=== PATIENT | female | born 1975 | race Caucasian/White ===

== ENCOUNTER 2020-12-22 06:06 | Outpatient (REF) | payer OTHER, SELFPAY ==
--- NOTE | ~2020-12-22 | MM_ITS ---
EXAMINATION: MM DIAGNOSTIC DIGITAL BREAST TOMOSYNTHESIS, BILATERAL TARGETED LEFT BREAST ULTRASOUND CLINICAL INFORMATION: Left breast lump upper outer quadrant. The lifetime risk of breast cancer based on the Tyrer-Cuzick Model is 8.2%. COMPARISON: Mammography: None. TECHNIQUE: Digital breast tomosynthesis is performed in both the craniocaudal and mediolateral oblique views along with computer-aided detection (CAD). Synthesized 2D images are generated from the tomosynthesis. Targeted left breast ultrasound. FINDINGS: The breasts are extremely dense, which lowers the sensitivity of mammography (ACR BI-RADS breast composition Category d). There are no significant masses, abnormal calcifications, or other abnormalities. Targeted ultrasound evaluation upper outer quadrant of the left breast demonstrated a small simple cyst measuring 5 x 4 x 2 mm in size. No suspicious solid mass identified. No region of abnormal distal sound shadowing. No edematous change within the parenchyma. Results are provided to the patient at time of visit by the technologist. MM/MM tomosynthesis diagnostic BI IMPRESSION: No specific mammographic or ultrasound findings to suggest malignancy. ASSESSMENT: BI-RADS 2: Benign. RECOMMENDATION: Routine annual mammography screening due in 12 months. This patient's information was entered into a reminder system with a target due date for their next mammogram.
--- NOTE | ~2020-12-22 | US_ITS ---
EXAMINATION: US DIAGNOSTIC ULTRASOUND BREAST, LEFT CLINICAL INFORMATION: Left breast lump upper outer quadrant. COMPARISON: Mammogram of same day. TECHNIQUE: Ultrasound of the breast is performed with real-time castrejon scale imaging and color Doppler. FINDINGS: There is a simple 5 x 4 x 3 mm cyst at the 2:00 position 9 cm from the nipple. There is no solid mass, architectural abnormality, duct ectasia, or edema in the soft tissue planes. Results are discussed with the patient at time of visit. US/US breast LT limited IMPRESSION: Small cyst upper outer quadrant of the left breast with no suspicious ultrasound findings. ASSESSMENT: BI-RADS 2: Benign RECOMMENDATION: Routine annual mammography screening due in 12 months. This patient's information was entered into a reminder system with a target due date for their next mammogram.
[2020-12-22 11:12] LABS: MANUAL DIFF FLAG NO
[2020-12-22 11:38] LABS: Alanine Aminotransferase 10 U/L (0-31); Albumin Level 4.3 g/dL (3.5-5.0); Alkaline Phosphatase 63 U/L (39-117); Anion Gap 15 (12-20); Aspartate Amino Transferase 11 U/L (5-31); Bilirubin Direct < 0.2 mg/dL (0.0-0.5); Bilirubin Total 0.3 mg/dL (0.0-1.0); Blood Urea Nitrogen 13 mg/dL (9-16); Calcium 9.3 mg/dL (8.4-10.2); Carbon Dioxide 24 mmol/L (22-29); Chloride 106 mmol/L (96-108); Cholesterol 153 mg/dL; Estimated Glomerular Filt Rate > 60; Glucose Fasting 107 mg/dL (60-99); HDL Cholesterol 41 mg/dL; LDL Cholesterol Calculated 89 mg/dl; Potassium 4.5 mmol/L (3.3-5.1); Sodium 140 mmol/L (135-145); Total Protein 7.3 g/dL (6.5-8.0); Triglycerides 118 mg/dL
[2020-12-22 11:40] LABS: Basophils Percent Auto 0.6 % (0-2); Eosinophils Absolute Auto 0.1 X10*3/uL (0.0-0.4); Eosinophils Percent Auto 1.8 % (0-4); Hematocrit 35.7 % (37-47); Hemoglobin 10.6 g/dl (12.0-16.0); Imm Gran Abs Auto 0.02 X10*3/uL (0.00-0.03); Imm Gran Pct Auto 0.4 % (0.0-0.4); Lymphocytes Absolute Auto 1.3 X10*3/uL (1.2-4.9); Lymphocytes Percent Auto 23.7 % (20-40); Mean Corpuscular HGB Conc 29.7 g/dl (31.0-35.0); Mean Corpuscular Hemoglobin 22.1 pg (27.0-33.0); Mean Corpuscular Volume 74.4 fL (80-98); Mean Platelet Volume 10.5 fL (9.4-12.3); Monocytes Absolute Auto 0.5 X10*3/uL (0.1-1.2); Monocytes Percent Auto 8.6 % (2-11); Neutrophils Absolute Auto 3.5 X10*3/uL (2.0-8.3); Neutrophils Percent Auto 64.9 % (45-73); Platelet Count 307 X10*3/uL (160-400); Red Cell Distribution Width 19.9 % (11.0-16.0); White Blood Count 5.5 X10*3/uL (4.8-10.8)
[2020-12-22 12:02] LABS: TSH reflex Free T4 0.51 uIU/mL (0.32-4.0)
[2020-12-22 12:08] LABS: Vitamin B12 271 pg/mL (200-900)
[2020-12-27 11:07] LABS: Vitamin D 25-OH, D2 <4 ng/mL; Vitamin D 25-OH, D3 31 ng/mL; Vitamin D 25-OH, Total 31 ng/mL (30-100)
== END 2020-12-22 06:07 | disposition home or self-care (01) ==
LOC: HO.MAMMO 06:06
PROVIDERS: PCP Internal Medicine; Visit Provider Internal Medicine
DX: Z00.01 Encounter for general adult medical examination with abnormal findings (principal); N63.21 Unspecified lump in the left breast, upper outer quadrant; R53.83 Other fatigue; Z72.0 Tobacco use
CPT/HCPCS: 36415; 76642; 77062; 77066; 80048; 80061; 80076; 82306; 82607; 84443; 85025

== ENCOUNTER 2021-02-16 08:56 | Outpatient (REF) | payer OTHER, SELFPAY ==
--- NOTE | ~2021-02-16 | US_ITS ---
EXAMINATION: US THYROID CLINICAL INFORMATION: Nontoxic goiter, unspecified. COMPARISON: None TECHNIQUE: Linear transducer castrejon-scale and color Doppler examination with attention to the region of the thyroid. FINDINGS: SIZE: Measurements of the thyroid lobes and nodules are given in sagittal, anteroposterior and transverse dimensions respectively. Right Thyroid Lobe: 8.0 x 2.3 x 2.9 cm, volume 27.9 mL. Parenchyma: The gland echotexture is heterogeneous. Thyroid vascularity is normal. Left Thyroid Lobe: 7.1 x 2.0 x 1.9 cm, volume 14.1 mL. Parenchyma: The gland echotexture is heterogeneous. Thyroid vascularity is normal. Isthmus: 0.5 cm in maximum AP dimension. Estimated total number of nodules greater than or equal to 1 cm: 6 to 10. Marketing Production Specialist nodules are described as follows: 1. Location: Right superior. Size: 1.0 x 0.8 x 1.0 cm, volume 0.45 mL. Nodule characteristics: Composition: Solid (2). Echogenicity: Isoechoic (1). Shape: Not taller than wide (0). Margins: Smooth (0). Echogenic Foci: None (0). ACR TI-RADS total points: 3 ACR TI-RADS category: 3 2. Location: Right inferior medial. Size: 2.7 x 1.4 x 3.3 cm, volume 6.55 mL. Nodule characteristics: Composition: Solid/almost completely solid (2). Echogenicity: Isoechoic (1). Shape: Not taller than wide (0). Margins: Ill-defined (0). Echogenic Foci: None (0). ACR TI-RADS total points: 3 ACR TI-RADS category: 3 3. Location: Left mid/inferior lateral. Size: 1.9 x 0.8 x 1.1 cm, volume 0.92 mL. Nodule characteristics: Composition: Solid (2). Echogenicity: Hypoechoic (2). Shape: Not taller than wide (0). Margins: Smooth (0). Echogenic Foci: None (0). ACR TI-RADS total points: 4 ACR TI-RADS category: 4 4. Location: Left mid/inferior. Size: 1.7 x 1.1 x 1.4 cm, volume 1.32 mL. Nodule characteristics: Composition: Solid/almost completely solid (2). Echogenicity: Isoechoic (1). Shape: Not taller than wide (0). Margins: Ill-defined (0). Echogenic Foci: None (0). ACR TI-RADS total points: 3 ACR TI-RADS category: 3 5. Location: Left inferior. Size: 1.3 x 1.1 x 1.9 cm, volume 1.44 mL. Nodule characteristics: Composition: Solid (2). Echogenicity: Hypoechoic (2). Shape: Not taller than wide (0). Margins: Smooth (0). Echogenic Foci: None (0). ACR TI-RADS total points: 4 ACR TI-RADS category: 4 NODES: No lymphadenopathy is seen in the tissue surrounding the thyroid gland. US/US thyroid IMPRESSION: Enlarged heterogeneous thyroid gland with multiple bilateral nodules. Fine-needle aspiration of the largest nodule in the right lobe and largest 2 nodules in the left lobe should be considered, as described below. ACR TI-RADS RECOMMENDATION REFERENCE: Ultrasound-guided fine-needle aspiration, followup ultrasound, no further followup. * TR1 (0 point) and TR 2 (2 points): No FNA or followup. * TR3 (3 points): FNA if more than or equal to 2.5 cm in maximum dimension, followup ultrasound in 1, 3 and 5 years if 1.5 to 2.4 cm in maximum dimension. * TR4 (4-6 points): FNA if more than or equal to 1.5 cm in maximum dimension, followup ultrasound in 1, 2, 3 and 5 years if 1 to 1.4 cm in maximum dimension. * TR5 (more than or equal to 7 points): FNA if more than or equal to 1 cm in maximum dimension, followup ultrasound every year for 5 years if 0.5 to 0.9 cm in maximum dimension. * TR3, TR4 or TR5 nodules that are below the size threshold for followup receive no followup.
== END 2021-02-16 08:57 | disposition home or self-care (01) ==
LOC: HO.HMGCX 08:56
PROVIDERS: Visit Provider Internal Medicine
DX: E04.9 Nontoxic goiter, unspecified (principal)
CPT/HCPCS: 76536

== ENCOUNTER 2021-03-12 09:04 | Outpatient (REF) | payer OTHER, SELFPAY ==
[2021-03-12 13:55] LABS: MANUAL DIFF FLAG NO
[2021-03-12 14:02] LABS: Basophils Percent Auto 0.6 % (0-2); Eosinophils Absolute Auto 0.1 X10*3/uL (0.0-0.4); Eosinophils Percent Auto 2.1 % (0-4); Hematocrit 33.2 % (37-47); Imm Gran Abs Auto 0.01 X10*3/uL (0.00-0.03); Imm Gran Pct Auto 0.2 % (0.0-0.4); Lymphocytes Absolute Auto 1.8 X10*3/uL (1.2-4.9); Lymphocytes Percent Auto 35.1 % (20-40); Mean Corpuscular HGB Conc 30.1 g/dl (31.0-35.0); Mean Corpuscular Hemoglobin 21.8 pg (27.0-33.0); Mean Corpuscular Volume 72.3 fL (80-98); Mean Platelet Volume 10.6 fL (9.4-12.3); Monocytes Absolute Auto 0.4 X10*3/uL (0.1-1.2); Monocytes Percent Auto 8.2 % (2-11); Neutrophils Absolute Auto 2.8 X10*3/uL (2.0-8.3); Neutrophils Percent Auto 53.8 % (45-73); Platelet Count 353 X10*3/uL (160-400); Red Blood Count 4.59 X10*6/uL (4.20-5.50); Red Cell Distribution Width 20.2 % (11.0-16.0); White Blood Count 5.2 X10*3/uL (4.8-10.8)
[2021-03-12 14:16] LABS: Estimated Average Glucose 91 mg/dL; Hemoglobin A1c % 4.8 %
[2021-03-12 14:43] LABS: Alanine Aminotransferase 15 U/L (0-31); Albumin Level 4.2 g/dL (3.5-5.0); Alkaline Phosphatase 70 U/L (39-117); Anion Gap 12 (12-20); Aspartate Amino Transferase 12 U/L (5-31); Bilirubin Total 0.6 mg/dL (0.0-1.0); Blood Urea Nitrogen 8 mg/dL (9-16); Calcium 9.4 mg/dL (8.4-10.2); Carbon Dioxide 23 mmol/L (22-29); Chloride 106 mmol/L (96-108); Estimated Glomerular Filt Rate > 60; Glucose Random 103 mg/dL (60-115); Iron 19 mcg/dL (30-160); Percent Iron Saturation 4 % (15-50); Potassium 3.9 mmol/L (3.3-5.1); Sodium 137 mmol/L (135-145); Total Iron Binding Capacity 457 mcg/dL (228-428); Total Protein 7.1 g/dL (6.5-8.0); Unsaturated Iron Binding 438 ug/dL
[2021-03-12 14:55] LABS: Ferritin 4 ng/mL (10-250); Thyroid Stimulating Hormone 0.39 uIU/mL (0.32-4.0)
[2021-03-12 14:58] LABS: Free T4 (Free Thyroxine) 1.08 ng/dL (0.71-1.85)
[2021-03-12 15:07] LABS: Vitamin B12 279 pg/mL (200-900)
[2021-03-13 09:37] LABS: Thyroglobulin Antibodies <1 IU/mL (< or = 1); Thyroid Peroxidase Antibodies <1 IU/mL (<9)
== END 2021-03-12 09:05 | disposition home or self-care (01) ==
LOC: HO.HMGCLDS 09:04
PROVIDERS: PCP Internal Medicine; Visit Provider Internal Medicine Endocrinology, Diabetes & Metabolism
DX: I10 Essential (primary) hypertension (principal); R73.03 Prediabetes; E04.2 Nontoxic multinodular goiter
CPT/HCPCS: 36415; 80053; 82607; 82728; 83036; 83540; 84439; 84443; 85025; 86376; 86800

== ENCOUNTER 2021-03-22 09:41 | Outpatient (REF) | payer OTHER, SELFPAY ==
--- NOTE | 2021-03-22 10:39 | PM.OP ---
Brief Operative Note Date of Service: 03/22/21 Pre-op diagnosis: NONTOXIC MULTINODULAR GOITER Post-op diagnosis: same Procedure: This procedure was explained to the patient. Alternatives, risks and benefits were discussed. Written consent was obtained. After sterile preparation of the skin, fine-needle aspiration biopsy of left mid medial thyroid nodule size 1.9 x 1.1 x 1.5 cm was performed under direct ultrasound guidance to confirm accurate needle placement. Three passes were performed with 27 gauge needles. Sample was submitted to cytology, initial cytology reading was adequate. Two passes were dedicated for [employer] genomic sequencing tank processor test. A second fine-needle aspiration biopsy of left lower pole thyroid nodule size 1.3 x 1.1 x 1.9 cm was performed under direct ultrasound guidance to confirm accurate needle placement. Three passes were performed with 27 gauge needles. Sample was submitted to cytology, initial cytology reading was adequate. Two passes were dedicated for [employer] genomic sequencing tank processor test. Patient tolerated procedure well. A third fine-needle aspiration biopsy of right mid to lower pole thyroid nodule size 2.7 x 1.4 x 3.3 cm was performed under direct ultrasound guidance to confirm accurate needle placement. Four passes were performed with 27 gauge needles. Sample was submitted to cytology, initial cytology reading was adequate. Two passes were dedicated for [employer] genomic sequencing tank processor test. Aftercare instructions were provided. Impression: uncomplicated fine-needle aspiration biopsy of left mid medial thyroid nodule, left lower pole nodule and right mid to lower pole thyroid nodules under direct ultrasound guidance. Surgeon: Luis Adams MD Anesthesia: local (Lidocaine 1 % 3 ml) Was an Environmental Compliance Technician used for this Procedure?: No Estimated blood loss (mL): 0 Condition: stable Disposition: same day
[2021-03-22] MEDS: Lidocaine HCl 1 % MPF 5 ML VIAL SUBCUT (11:40)
== END 2021-03-22 09:42 | disposition home or self-care (01) ==
LOC: HO.US 09:41
PROVIDERS: PCP Internal Medicine; Visit Provider Internal Medicine Endocrinology, Diabetes & Metabolism
DX: E04.2 Nontoxic multinodular goiter (principal)
CPT/HCPCS: 10005; 10006; 88172; 88173; 88177

== ENCOUNTER → 2021-04-06 07:48 | Outpatient (BNVA) | payer OTHER, SELFPAY | PROVIDERS: PCP Internal Medicine; Visit Provider Internal Medicine Endocrinology, Diabetes & Metabolism ==

== ENCOUNTER 2022-03-16 12:57 | Outpatient (REF) | payer OTHER, SELFPAY ==
--- NOTE | ~2022-03-16 | XR_ITS ---
EXAMINATION: CR X-RAY HAND AND WRIST RIGHT CLINICAL INFORMATION: Pain. COMPARISON: None TECHNIQUE: 4 views of the right hand and wrist were obtained. FINDINGS: There is acute, nondisplaced transverse fracture of the distal radial metaphysis. There is mild widening of the distal radial ulnar joint. A tiny density seen adjacent to the ulnar styloid. The carpal bones are normally aligned. The metacarpals and phalanges are intact. There is mild to moderate soft tissue swelling. XR/XR hand wrist RT IMPRESSION: 1. Acute, nondisplaced distal radial metaphysis fracture. A tiny ulnar styloid fracture cannot be excluded. 2. Mild to moderate soft tissue swelling.
== END 2022-03-16 12:58 | disposition home or self-care (01) ==
LOC: HO.HMGCX 12:57
PROVIDERS: PCP Internal Medicine; Visit Provider Physician Assistant
DX: M25.531 Pain in right wrist (principal)
CPT/HCPCS: 73110; 73130

== ENCOUNTER 2022-03-20 07:17 | Outpatient (REF) | payer OTHER, SELFPAY ==
--- NOTE | ~2022-03-20 | XR_ITS ---
EXAMINATION: XR WRIST, RIGHT CLINICAL INFORMATION: Follow-up fracture COMPARISON: Previous x-ray 03/16/2022 TECHNIQUE: PA, lateral, and oblique views of the right wrist. FINDINGS: There is a comminuted fracture of the right distal radius intra-articular with the radiocarpal joint. Appears unchanged from 03/16/2022 exam. There may be a small fracture of the ulnar styloid. No other fracture is seen. Carpal bones are normal. There is diffuse soft tissue swelling about the wrist. XR/XR wrist RT min 3V IMPRESSION: No change in comminuted intra-articular right distal radius fracture. Question minimally displaced ulnar styloid fracture.
== END 2022-03-20 07:18 | disposition home or self-care (01) ==
LOC: HO.HOSX 07:17
PROVIDERS: Visit Provider Physician Assistant
DX: S52.501A Unspecified fracture of the lower end of right radius, initial encounter for closed fracture (principal)
CPT/HCPCS: 73110

== ENCOUNTER 2022-03-25 05:53 | Day surgery (SDC) | payer OTHER, SELFPAY ==
[2022-03-25] VITALS (8 sets, daily range): BP systolic 138–156; BP diastolic 69–79; PULSE 77–90; RESP 15–18; TEMP 36.1–37.1; O2SAT 96–100; BMI 23.9
--- NOTE | ~2022-03-25 | FL_ITS ---
EXAMINATION: XR C-ARM GREATER THAN 1 HOUR * Intraoperative fluoroscopy provided for Dr. Meek. * 2 spot radiographs were obtained over the right wrist. * No radiologist in attendance. * Fluoroscopy time: 37.5 seconds. * Dose: 19,708.2 mGycm2. * Please refer to the procedural note for further full details.
[2022-03-25 06:29] LABS: UPreg QC Valid YES; Urine Pregnancy NEGATIVE (NEGATIVE)
--- NOTE | 2022-03-25 07:40 | PC.NURSE ---
regional block with dr ugalde pt tolerated well timeout completed all consents signed pt aware of care plan
--- NOTE | 2022-03-25 08:00 | MHC.SHP ---
Pre-Procedural Eval Section A Date of Service: 03/25/22 The patient is an INPATIENT: No Changes since office visit: No Cold of Flu in the past 2 weeks, No New Medical Problems, No Changes in Medication and No Patient answered all questions The History & Physical has been completed within 30 days and I have reviewed it.: Yes Section B Chief Complaint: Unspecified fracture of the lower end of right rad Allergies: Allergies Allergy/AdvReac Type Severity Reaction Status Date / Time amoxicillin Allergy Unknown swell/hives Verified 03/20/22 08:22 ibuprofen Allergy Unknown swollen Verified 03/20/22 08:22 lips shellfish derived Allergy Hives Verified 03/20/22 08:22 bee sting Allergy Swelling Uncoded 03/20/22 08:25 Plan I have reviewed the history and physical and performed a pertinent physical examination on my patient. No changes have occurred unless specified.
--- NOTE | 2022-03-25 08:01 | P.OP_ITS ---
Operative Note Operative Note Date of Service: 03/25/22 Narrative: Operative Note Narrative: Preop diagnosis: 1. Right Distal radius fracture Postop diagnosis: Same Procedure: 1. Right Distal radius fracture open reduction internal fixation , extra- articular Surgeon: Harika Meek MD Anesthesia: Mac plus regional block Findings: right distal radius fracture, extra-articular Implants: A 3 hole Accu Med volar locking plate 4x 2.3 mm locking pegs/screws, and 3 3.5 mm cortical screws Tourniquet time: 44 minutes EBL: 5.0 ml Specimen: None Drains: None Complications: None Disposition: Brought to the recovery room in stable condition Plan: Follow-up in 10-14 days for wound check, suture removal and postop radiographs The patient will be placed in a volar wrist splint. Encouraged no lifting of anything heavier than a cell phone. Please encourage active and passive range of motion of the digits. Follow-up at 4-5 weeks postop for repeat radiographs. Indications: The patient is a 47 year old with aright displaced distal radius fracture . The risks and benefits of operative treatment, including but not limited to risk of damage to blood vessels, nerves, tendons, infection, recurrence, persistent pain or numbness, incomplete resolution of preoperative symptoms, or need for further surgery were discussed with the patient and they wished to proceed with surgery. Procedure: Once consent was obtained patient was brought back to the operating suite and placed in the operating table in a supine position. A regional block was performed by the anesthesia team. Perioperative antibiotics and anesthesia was administered by the anesthesia team. A tourniquet was applied to the proximal aspect of the right upper extremity and the limb was prepped and draped in a standard surgical fashion. The limb was elevated exsanguinated with Esmarch bandage and the tourniquet inflated to 250 mm of mercury for a total tourniquet time of 44 minutes. The FluoroScan was used throughout the case to assess our reduction, and facil itate implant placement. A gentle closed reduction was 1st performed on the patient's right distal radius fracture. Was assessed radiographically before proceeding with the reduction internal fixation. I then made an 8 cm longitudinal incision over the distal aspect of the flexor carpi radialis tendon. The incision was made through the skin to the subcutaneous tissue using a 15. Blade. Then carefully dissected down to flexor carpi radialis tendon she tenotomy scissors. The FCR tendon sheath was then incised longitudinally using tenotomy scissors under direct visualization. The FCR tendon was then retracted ulnarly. I then made a longitudinal incision in the volar forearm fascia through the floor of FCR tendon sheath using tenotomy scissors under direct visualization. I identified the interval between the radial artery and the flexor tendons. This interval was developed further with my index finger, releasing some of the muscular fibers of the flexor pollicis longus. A dull weatlander retractor was then placed. I then created an ulnarly based flap of the pronator quadratus by releasing the radial and distal edges using a 15. Blade. A Spencer elevator was used to elevate the pronator quadratus from the volar surface of the distal radius. This then revealed to us our distal radius fracture. An open reduction was then performed on our distal radius fracture. I then p laced a short narrow 3 hole Accu Med volar locking plate on the volar surface of the distal radius. I placed a single K-wire through the distal aspect of the plate and into the distal radius. This was assessed using fluoroscopic images. I was satisfied with the placement of our plate. I then placed 4x 2.3 mm locking screws/pegs in the distal aspect of the plate and distal radius by 1st drilling bicortically with a 1.8 mm drill bit, measuring with a depth gauge, and placing the appropriate length locking screws/pegs. The placement of our plate and screws was then assessed again using fluoroscopic images. The once satisfied with the placement of the volar locking plate and screws on the distal aspect of the distal radius, the plate was then reduced to the shaft of the radius. I then placed 3 3.5 mm cortical screws to the proximal aspect of the plate and into the shaft of the radius. This was done by 1st drilling bicortically with a 2.8 mm drill bit, measuring with a depth gauge, and placing the appropriate length screw. Final radiographs were then obtained. The DRUJ was assessed and found to be stable on exam. I was satisfied with our reduction and placement of all implants. At this point the wound was irrigated with normal saline. The pronator quadratus was reduced back over the volar locking plate using some 3-0 Vicryl suture material. The tourniquet was then deflated and hemostasis was obtained with a brief period of local pressure and bipolar monopolar electrocautery. The subcutaneous layer was then reapproximated using some 4-0 Vicryl suture, and the skin edges were reapproximated using some 5 0 Prolene suture. The wound was then infiltrated with some 1% lidocaine with epinephrine postop pain control. A sterile dressing and a short dorsal splint allowing for active flexion and extension of the digits was applied. The patient appears to have tolerated the procedure well and with no complications. All digits were well vascularized conclusion of the case.
--- NOTE | 2022-03-25 08:24 | P.CONAN_ITS ---
[facility] Active Problems Active Problems: All Active Problems (Updated 03/20/22 @ 11:52 by Costa Hyman PA-C) Fracture of distal end of right radius (Acute) Non-toxic multinodular goiter (Acute) Thyroid nodule (Acute) Pre-diabetes (Acute) Iron deficiency anemia (Acute) Hypertension, essential (Acute) Routine gynecological examination (Acute) Breast screening (Acute) Enlarged thyroid (Acute) Tired (Acute) Breast lump on left side at 2 o'clock position (Acute) Tobacco abuse (Acute) Encounter for general adult medical examination with abnormal findings (Acute) Past Medical History Medical History (Updated 03/20/22 @ 11:52 by Costa Hyman PA-C) High blood pressure Non-toxic multinodular goiter Family History Family History (Updated 03/12/21 @ 09:17 by LANNY Gusman) Maternal Grandmother Lung cancer Father No problems noted. Mother No problems noted. Family history of problems with anesthesia: No Surgical History Surgical History (Updated 03/12/21 @ 09:17 by LANNY Gusman) Hx of section Hx of tonsillectomy History of Problems with Anesthesia: No Social History Social History (Updated 03/20/22 @ 08:23 by Anitha Oneal Kendra) Alcohol intake: current Alcohol intake frequency: holidays/special occasions only Patient Tobacco Use Status: Current everyday Tobacco user Cigarettes Per Day: 15 Years Smoked: 30 Are you DNR?: No Advance Directives: No Advance Directives Information Provided: Yes Recently lost weight without trying: No Nutrition Risks: No Nutritional Risk Current occupational status: employed Current occupation: electronics engineering technician Meds Allergies Allergy/AdvReac Type Severity Reaction Status Date / Time amoxicillin Allergy Unknown swell/hives Verified 03/20/22 08:22 ibuprofen Allergy Unknown swollen Verified 03/20/22 08:22 lips shellfish derived Allergy Hives Verified 03/20/22 08:22 bee sting Allergy Swelling Uncoded 03/20/22 08:25 Exam Exam Date and Time: March 25, 2022823 Height,Weight and Vital Signs: Height 5 ft 10 in Weight 75.75 kg Last Vital Signs Temp 97 F 03/25/22 07:38 Pulse 77 03/25/22 07:38 Resp 18 03/25/22 07:38 BP 140/69 H 03/25/22 07:38 Pulse Ox 97 03/25/22 07:38 Pertinent Lab Results Pertinent Lab Results: Laboratory Tests 03/25/22 06:05 Urine Test NEGATIVE Airway Mallampati Class: II Neck ROM: Full Assessment and Plan Assessment Anesthesia Assessment: Anesthesia Plan Discussed and Chart Reviewed Final Anesthetic Review Family History of Problems with Anesthesia: No History of Problems with Anesthesia: No NPO: Yes ASA Class: II Final Preanesthetic Review: No Changes in Pt Med Stat, Meds/Allgs Chart Reviewed, Consent Obtained/Reviewed and Anes Risks/Benef Reviewed Patient Risk: Intermediate Procedure Risk: Low Anesthetic Plan Anesthetic Plan: GA and Regional Block Disposition: Standard PACU
== END 2022-03-25 10:54 | disposition home or self-care (01) ==
PROVIDERS: Anesthesiology; PCP Internal Medicine; Visit Provider Orthopaedic Surgery
PROC: (CPT 25607; principal; 2022-03-25 07:30)
DX: S52.551A Other extraarticular fracture of lower end of right radius, initial encounter for closed fracture (principal); W10.9XXA Fall (on) (from) unspecified stairs and steps, initial encounter; Y93.01 Activity, walking, marching and hiking; Y92.9 Unspecified place or not applicable; Y99.8 Other external cause status; I10 Essential (primary) hypertension; E04.2 Nontoxic multinodular goiter; Z88.0 Allergy status to penicillin; Z88.8 Allergy status to other drugs, medicaments and biological substances; F17.210 Nicotine dependence, cigarettes, uncomplicated
CPT/HCPCS: 25607; 81025; C1713; C1769; J0690; J1100; J2250; J2405; J3010

== ENCOUNTER 2022-04-05 07:15 | Outpatient (REF) | payer OTHER, SELFPAY ==
--- NOTE | ~2022-04-05 | XR_ITS ---
EXAMINATION: XR WRIST, RIGHT CLINICAL INFORMATION: Right wrist pain. COMPARISON: Radiographs of the right wrist done on 03/20/2022. TECHNIQUE: PA, lateral, and oblique views of the right wrist. FINDINGS: Interval placement of ORIF is noted at the site of the previously documented comminuted fracture involving the right distal radius. The bony alignments are intact. No definite radiographic evidence of any callus formation is seen. No new abnormalities. Persistent soft tissue swelling. XR/XR wrist RT min 3V IMPRESSION: Postop changes of ORIF at the site of the previously documented comminuted the fracture involving the right distal radius showing satisfactory alignment and intact hardware. No definite radiographic evidence of any callus formation. Persistent soft tissue swelling.
== END 2022-04-05 07:16 | disposition home or self-care (01) ==
LOC: HO.HOSX 07:15
PROVIDERS: Visit Provider Physician Assistant
DX: S52.501D Unspecified fracture of the lower end of right radius, subsequent encounter for closed fracture with routine healing (principal)
CPT/HCPCS: 73110

== ENCOUNTER 2022-05-01 08:20 | Outpatient (REF) | payer OTHER, SELFPAY ==
--- NOTE | ~2022-05-01 | XR_ITS ---
EXAMINATION: XR WRIST, RIGHT CLINICAL INFORMATION: Pain right wrist COMPARISON: Right wrist 04/05/2022 TECHNIQUE: PA, lateral, and oblique views of the right wrist. FINDINGS: Postoperative changes with volar metallic plate and screws stabilizing distal radial fracture in alignment. There is no change since the previous study 04/05/2022. No additional bony abnormality seen. No change in small ulnar styloid process fracture either. The soft tissues are normal. XR/XR wrist RT min 3V IMPRESSION: Healing distal radial fracture with volar hardware appearing stable.
== END 2022-05-01 08:21 | disposition home or self-care (01) ==
LOC: HO.HOSX 08:20
PROVIDERS: Visit Provider Orthopaedic Surgery
DX: M25.531 Pain in right wrist (principal)
CPT/HCPCS: 73110